=== PATIENT | female | born 1955 | race Caucasian/White ===

== ENCOUNTER 2016-11-03 10:09 | Inpatient (IN) | payer OTHER ==
[2016-11-03] VITALS (11 sets, daily range): BP systolic 103–137; BP diastolic 60–88; PULSE 54–80; RESP 18–22; O2SAT 97–100
[~2016-11-03] VITALS: Ht 162.6 cm; Wt 72.4 kg
[~2016-11-03 10:09] MED LIST: MELO-253 PO
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
[2016-11-03 10:20] LABS: BASOPHILS % (AUTO) 1.4 % (0-3); EOSINOPHILS % (AUTO) 3.2 % (0-5); MONOCYTES % (AUTO) 10.3 % (4-12); Mean Corpuscular Hemoglobin 29.8 pg (27.0-35.0); Mean Corpuscular Volume 89.3 fL (81-100); NEUTROPHILS % (AUTO) 30.2 % (40-74); Platelet Count 275 bil/L (150-400)
[2016-11-03 10:37] LABS: INR 0.98 ratio
--- NOTE | 2016-11-03 10:38 | DRSVH ---
PROCEDURE: CT BRAIN (TPA) ([id number]) INDICATIONS: Stroke TECHNIQUE: Noncontrast 4.5 mm thick angled axial sections acquired from the foramen magnum to the vertex, with c oronal reformats. COMPARISON: None. FINDINGS: Image quality: Diagnostic. Brain: There is no acute intra-axial or extra-axial hemorrhage. No extra-axial fluid collection is i dentified. There is no midline shift or mass effect. The orbits are grossly unremarkable. No large areas of diffusely decreased attenuation are evident within the brain to suggest diffuse cer ebral edema. No focal parenchymal abnormality is identified. The ventricles and cortical sulci are age-appropriate. Bones: Calvarium and visualized facial bones are grossly intact. Mild fluid/mucosal thickening is p resent involving the imaged maxillary sinuses. Otherwise, paranasal sinuses and mastoid air cells ar e clear. IMPRESSION: 1. No acute intracranial hemorrhage. 2. No evidence of diffuse cerebral edema. 3. Mild sinus disease. Note: Finding were discussed with Dr. Zee at 1035 hours (PST) on 11/03/16. This study fulfills neurological imaging criteria for inclusion or exclusion of acute stroke therapie s based on available published neurological imaging guidelines. Dictated by: Jono Wooten M.D. on 11/03/2016 at 9:32 Approved by: Jono Wooten M.D. on 11/03/2016 at 9:37
[2016-11-03 10:41] LABS: TROPONIN T 0.01 ug/L (0.0-0.011)
--- NOTE | 2016-11-03 10:48 | DRSVH ---
PROCEDURE: CT CERVICAL SPINE WITHOUT CONTRAST ([id number]) INDICATIONS: trauma TECHNIQUE: Noncontrast 3 mm thick sections acquired from the skull base to the T4 level. Sagittal and coronal r eformats were then constructed. For radiation dose reduction, the following was used: automated exp osure control, adjustment of mA and/or kV according to patient size. COMPARISON: [facility], CT, CT CERVICAL SPINE WO CON, 01/05/2016, 12:22. FINDINGS: Image quality: Diagnostic. Bones: On the sagittal series, the cervicothoracic junction is adequately visualized and the alignmen t through this region is within normal limits. Additionally, in the craniocervical and atlantoaxial joints are well-maintained. The odontoid is intact. The vertebral body heights and prevertebral sof t tissues are within normal limits throughout the cervical spine without evidence to suggest acute co mpression fracture. No acute fractures of the cervical spine are evident. The bone mineralization is within normal limits. Postsurgical changes are present related to an anterior cervical discectomy and fusion extending from C5 through C7. An anteriorly applied orthopedic plate is secured in place by 2 screws at each level with intervertebral disc spacers noted at each level. The orthopedic hardware is intact and appears similar to the prior study. Mild to moderate degenerative changes of the cervical spine are again e vident throughout the cervical spine, which have not significantly progressed and demonstrate areas o f mild to moderate facet arthropathy and a posterior disc osteophyte complexes. Soft tissues: No prevertebral soft tissue swelling. The imaged overlying soft tissues of the neck a re within normal limits. No pneumothoraces are evident within the imaged lung apices. There is mild aortic atherosclerosis. IMPRESSION: 1. No acute fracture of the cervical spine. 2. Unchanged alignment and appearance of the orthopedic hardware, status post C5-C7 anterior cervica l fusion. 3. Mild to moderate degenerative changes of the cervical spine have not significantly progressed in the interim. Dictated by: Jono Wooten M.D. on 11/03/2016 at 9:41 Approved by: Jono Wooten M.D. on 11/03/2016 at 9:46
[2016-11-03] MEDS ORDERED: HYDROmorphone 0.5 mg/0.5 mL iSecure Syringe IVPUSH PRN (11:10)
[2016-11-03] MEDS ORDERED: Ondansetron 2 mg/mL 2 mL Inj ONE (11:39)
--- NOTE | 2016-11-03 12:06 | DRSVH ---
PROCEDURE: X-RAY THORACIC SPINE, 2 VIEWS INDICATIONS: 60 year-old female with T4 tenderness after fall from chair. TECHNIQUE: 2 views of the thoracic spine were acquired. COMPARISON: [facility], CT, CT ABD PELVIS W CON TRAUMA, 01/05/2016, 12:22. [facility], CT, CT CERVICAL SPINE WO CON, 11/03/2016, 10:27. FINDINGS: Bones: No fractures or dislocations. There is mild mid thoracic spine scoliosis. Patient is status post C5-C7 discectomies with anterior fixation as before. No suspicious bony lesions. 12 pairs of rib s are noted, and appear intact where visualized. Soft tissues: No paravertebral stripe thickening. Large peripherally calcified splenic lesion is ag ain noted on the lateral projection, not significantly changed since December 2015 CT scan. IMPRESSION: 1. No acute bony injuries of the thoracic spine. 2. Large peripherally calcified splenic lesion again noted, probably sequelae of remote infection or hemorrhage. Dictated by: Nawaf Appiah M.D. on 11/03/2016 at 12:00 Approved by: Nawaf Appiah M.D. on 11/03/2016 at 12:05
[2016-11-03] MEDS ORDERED: PANT40TA3 PO (12:10)
[2016-11-03] MEDS ORDERED: TOPI50TA88 PO (12:10)
[2016-11-03] MEDS ORDERED: ZOLP10TA5 PO (12:10)
[2016-11-03] MEDS ORDERED: CITA40TA13 PO (12:10)
[2016-11-03] MEDS ORDERED: LORA-302 PO (12:10)
[2016-11-03 14:22] LABS: APPEARANCE,URINE HAZY (CLEAR,HAZY); COLOR,URINE STRAW (YELLOW); OCCULT BLOOD,URINE NEGATIVE (NEGATIVE); PH,URINE 7.5 (5.0-8.0); UROBILINOGEN,URINE NORMAL (NORMAL)
[2016-11-03] MEDS ORDERED: Ondansetron 2 mg/mL 2 mL Inj IVPUSH PRN (15:55)
--- NOTE | 2016-11-03 16:10 | NUR ---
Report Report received from ANNIKA Shi nurse.
--- NOTE | 2016-11-03 16:57 | PCM.HPMED ---
Subjective Date of Service Nov 03, 2016 Primary Provider: Admitting Physician: Primary Care Physician: Robb Trevino MD Attending Physician: Chief Complaint: LOC History of Present Illness: 60yo F with migraine with aura, GERD p/w witnessed syncopal episode. patient doesn't remember all the course of episode but, pt was usual state of health until this episode. 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 When she asked for headache, she said no. then pt started having severe nausea, but didn't vomit. Then next pt remembers is that her colleague was assisting her to lay down, remembered EMS came, gave her medicine. As per ED provider, pt lost consciousness at work talking to a co- worker, around 9am, had EBD+, called EMS, then pt was improving in her MS but not fully returned, called EMS again 20-39min later, when she was transferred to hospital. Of note, pt had episode 12yrs ago, after she had shoulder MRI, she felt same type of feeling, milder degree with lightheadedness d on his way home but didn't lose consciousness, resolved at rest. pt denied similar episode, denied seizures in the past. pt does have severe Migraine with Aura, started preventives for 12yrs, since then patient rarely requires abortive meds, last attack was one year ago when she took abortive med. doesn't remember any of the medicines' name, "I am foggy ". when she had migraine in the past, she didn't have aura with flushes, which she did not have prior to syncope. Upon interview, pt c/o back soreness, neck pain, unusual feeling on figertips on left hands, perioral area on the left face, decreased sensation throughout on left sided. didn't thinks her speech was particularity different. c/o mild cloudiness on left ear and her throat. ED VSS, labs were unremarkable, CTH/cervical spine CT, thoracic xray didn't show evidence of stroke, fracture. admitted to hospital for further stroke w/u Review of Systems: Pertinent positives as noted in history of present illness. All other systems were reviewed and are negative Allergies Coded Allergies: Cephalosporins (Verified Allergy, Mild, rash, 11/03/16) Penicillins (Verified Allergy, Unknown, Hives, 01/05/16) Uncoded Allergies: NARCOTICS (Allergy, Mild, Hives, 01/05/16) Home Medications patient doesn't remember clearly given her MS migraine meds one for prevention, one for attack prn anti-acid pill ambien 0.5tab for sleeping qhs PMH as described above Surgical History cervical fusion one year ago hysterectomy csecx3 tonsilectomy Family History mother breast CA Social History Hx Alcohol Use: No Hx Substance Use: No Hx Tobacco Use: Yes (former smoker, [id number] quit 12yrs ago) Smoking Status: Never Smoker Exam Vital Signs Vital Sign - Last Date Time Temp Pulse Resp B/P Pulse Ox O2 Delivery O2 Flow Rate FiO2 11/03/16 11:30 121/76 11/03/16 11:30 72 11/03/16 10:20 18 11/03/16 10:10 100 Room Air Exam NAD, comfortably laying down on the bed no JVD, MMM, no LAD RRR, nl s1, s2 no mrg CTAB, no w,c S,ND,NT,normoactive BS+ warm, no edema, pulses 2/2 Neuro:speech coherent, fluent, AAOx3 unable to assess gait PERRLA, EOMI, mild decrease nasolabial fold on left, able shrug shoulders equally able rotate neck equally on both sides FTN, dysdiadochokinesia intact, motor 5/5 throughout, sensory decreased to dull touch on left face, left arm, left leg Lab and Diagnostics Result Diagram: 11/03/16 1016 11/03/16 1016 X-Rays, CTs and MRIs PROCEDURE: CT BRAIN (TPA) ([id number]) INDICATIONS: Stroke TECHNIQUE: Noncontrast 4.5 mm thick angled axial sections acquired from the foramen magnum to the vertex, with coronal reformats. COMPARISON: None. FINDINGS: Image quality: Diagnostic. Brain: There is no acute intra-axial or extra-axial hemorrhage. No extra-axial fluid collection is identified. There is no midline shift or mass effect. The orbits are grossly unremarkable. No large areas of diffusely decreased attenuation are evident within the brain to suggest diffuse cerebral edema. No focal parenchymal abnormality is identified. The ventricles and cortical sulci are age-appropriate. Bones: Calvarium and visualized facial bones are grossly intact. Mild fluid/ mucosal thickening is present involving the imaged maxillary sinuses. Otherwise , paranasal sinuses and mastoid air cells are clear. IMPRESSION: 1. No acute intracranial hemorrhage. 2. No evidence of diffuse cerebral edema. 3. Mild sinus disease. Note: Finding were discussed with Dr. Zee at 1035 hours (PST) on 11/03/16. This study fulfills neurological imaging criteria for inclusion or exclusion of acute stroke therapies based on available published neurological imaging guidelines. Dictated by: Jono Wooten M.D. on 11/03/2016 at 9:32 Approved by: Jono Wooten M.D. on 11/03/2016 at 9:37 Assessment & Plan acute, active syncopal episode, POA, ddx: seizure with jose paralaysis, cardiac arrhythmia/ vavular dz, acute ischemic stroke. Unlikely related to atypical Migraine given that it was well controlled recently. -MR stroke protocol ordered, pt was able to tolerate in the past -TTE, patient was told that she had murmur but unremarkable on exam -telemetry, -frequent neurocheck q4h -s/s eval, PT/OT, assess gait -a1c, lipid panel for risks stratification, pt did have PCP but doesn't get regular checkup -will continue asa, statin for now -tylenol for pain after syncope -EEG ordered chronic, stable Migraine, will continue preventive meds after med rec GERD, will continue home med dispo:Patient will be admitted with inpatient status with expectation of inpatient therapy for more than 2 midnights diet:NPO for now, awaits s/s eval dvt ppx:LMWH Full Code PCP: Dr.Erik Trevino Time spent 65 minutes Aimee Gonzales MD Nov 03, 2016 15:59
--- NOTE | 2016-11-03 17:21 | NUR ---
Evaluation completed. Please go to "Notes" then click on "Assessments and Notes" (bottom left corner of screen). Then select appropriate discipline tab on top of screen.
--- NOTE | 2016-11-03 17:53 | DRSVH ---
PROCEDURE: MRI STROKE PROTOCOL ([id number]) Pre- and post-contrast brain MRI, non-contrast brain MR angiogram, pre- and postcontrast neck MR avinash ogram INDICATIONS: 60 year-old female with syncope and left-sided numbness. TECHNIQUE: Brain: Noncontrast axial T1 spin echo, axial T2 fast spin echo, sagittal and axial FLAIR, coronal T2 fast spin echo, axial gradient echo, axial diffusion and ADC through the brain. After the administr ation of contrast, axial 3D VIBE of the cranial vasculature and brain. Brain MRA: Non-contrast 3-D time of flight MR angiogram, with multiple uykcnyv-ugsdkehtq-kgphbzeeyy (MIP) reformats performed. Neck MRA: Axial and sagittal TruFISP through the neck. Coronal dynamic MR angiogram during administ ration of contrast in the arterial and venous phases, with 3-dimenstional rantugl-ipcnahkfa-blamkjicc n (MIP) reformats constructed from subtraction images. COMPARISON: [facility], CT, BRAIN (TPA), 11/03/2016, 10:27. FINDINGS: Image quality: Excellent. BRAIN: CSF spaces: Ventricles are normal in size and shape. Basal cisterns are patent. No extra-axial flu id collections. Brain: No intracranial bleeds or mass effects. Alvarez-white matter interface is normal. Diffusion we ighted images show no acute ischemic insults. Brainstem appears normal. Normal intravascular flow v oids are present. No abnormal intracranial enhancement. Skull and face: Calvarial marrow signal is normal. Orbits appear normal. Sinuses: Sinuses and mastoids are clear, except for small dependent fluid in the right maxillary sin us. BRAIN MR ANGIOGRAM: Anterior circulation: Intracranial internal carotid arteries are normal in size and enhancement. Th e flow within the paired anterior cerebral arteries is normal and symmetric. The flow within the mid dle cerebral arteries is normal and symmetric. The anterior communicating artery is seen. No stenos es, occlusions, or aneurysms. Posterior circulation: The visualized portions of the vertebral arteries demonstrate normal caliber, and join to form a normal appearing basilar artery. The flow within the posterior cerebral arteries is normal and symmetric. No stenoses, occlusions, or aneurysms. NECK MR ANGIOGRAM: Carotids: Great vessels demonstrate a conventional anatomy as they arise from the aortic arch. The origins of the common carotid arteries appear patent. The calibers and courses of both common caroti d arteries are normal. The bifurcation regions appear normal bilaterally. The internal carotid manolo val demonstrate normal course and caliber. Posterior circulation: The origins of the vertebral arteries appear patent. More superior portions of both vertebral arteries demonstrate normal course and caliber, and join to form a normal appearing basilar artery. Miscellaneous: Subclavian arteries appear patent. Pre-contrast images through the neck show no soft tissue abnormalities. IMPRESSION: BRAIN MRI: No acute intracranial abnormalities. Small right maxillary sinus fluid may suggest sinusitis. BRAIN MR ANGIOGRAM: No hemodynamically significant lesions of the central intracranial vasculature. NECK MR ANGIOGRAM: No hemodynamically significant lesions of the extracranial neck vasculature. Dictated by: Nawaf Appiah M.D. on 11/03/2016 at 17:42 Approved by: Nawaf Appiah M.D. on 11/03/2016 at 17:52
--- NOTE | 2016-11-03 17:55 | NUR ---
Admission Pt admitted to room 3017 from MRI via stretcher. Pt admission from ED. Ambulated to restroom, tolerated well. Complaints of pain to neck and back, distraction and comfort techniques in place as we await medication orders. Dr. Gonzales to be paged regarding pain medication desires. Oriented to room and floor, call light within reach, bed in lowest position. Pt denies any further needs.
--- NOTE | 2016-11-03 18:30 | NUR ---
Telemetry Telemetry called, tele applied to patient. Per telegraphic typewriter repairer, patient in NSR in 60's.
--- NOTE | 2016-11-03 19:21 | DRSVH ---
PROCEDURE: US BILATERAL DUPLEX DOPPLER IMAGING OF THE CAROTIDS ([id number]) INDICATIONS: 60 year-old female with syncope. TECHNIQUE: Color and pulse Doppler interrogation was performed of both carotid systems, with image documentation and velocity measurements. COMPARISON: None. FINDINGS: Right side: Brachial blood pressure: 121/76 mm Hg. Common carotid artery peak systolic velocity: 66 cm/sec. Internal carotid artery peak systolic velocity: 84 cm/sec. Internal carotid artery end diastolic velocity: 35 cm/sec. External carotid artery peak systolic velocity: 72 cm/sec. ICA/CCA peak systolic ratio: 1.28. Alvarez scale imaging description: No atherosclerotic plaque. Percent internal carotid artery stenosis: 0%. Vertebral artery: Flow direction is antegrade. Left side: Brachial blood pressure: 121/66 mm Hg. Common carotid artery peak systolic velocity: 83 cm/sec. Internal carotid artery peak systolic velocity: 86 cm/sec. Internal carotid artery end diastolic velocity: 28 cm/sec. External carotid artery peak systolic velocity: 83 cm/sec. ICA/CCA peak systolic ratio: 1.03. Alvarez scale imaging description: Small plaque within the proximal internal carotid artery. Percent internal carotid artery stenosis: Less than 50%. Vertebral artery: Flow direction is antegrade. IMPRESSION: No hemodynamically significant stenoses of the extracranial internal carotid arteries. Dictated by: Nawaf Appiah M.D. on 11/03/2016 at 19:17 Approved by: Nawaf Appiah M.D. on 11/03/2016 at 19:20
[2016-11-04] VITALS (7 sets, daily range): BP systolic 94–121; BP diastolic 56–74; PULSE 51–65; RESP 16–18; O2SAT 95–99
--- NOTE | 2016-11-04 12:25 | DRSVH ---
[facility] [address] [place] [address] Echocardiogram Report Name: KATHERINE PADILLA LStudy Date: 11/04/2016 Height: 64 in Hospital Exam Location: [facility] Weight: 160 lb Gender: Female BSA: 1.8 m2 : 1955 Age: 60 yrs BP: 106/57 mmHg Reason For Study: SYNCOPE Ordering Physician: HOSPITALIST SVHPerformed By: Gracie Caldera Referring Physician: Dr. Robb Trevino Interpretation Summary The left ventricle is normal in size, wall thickness, and systolic function without any focal wall motion abnormalities. The ejection fraction is estimated to be 60-65%. The right ventricle is normal in size and function. The right ventricular systolic pressure is estimated at 22 mmHg assuming a right atrial pressure of 3 mm Hg. Both atria are mildly dilated. There is mild mitral regurgitation. There is mild aortic regurgitation. There is no other significant valvular heart disease. The aortic root is normal size. Procedure: A two-dimensional transthoracic echocardiogram with color flow and Doppler was performed. The study quality was technically good. There is no prior echocardiogram noted for this patient. The patient was in a bradycardic rhythm during the exam. Left Ventricle: The left ventricle is normal in size, wall thickness, and systolic function without any focal wall motion abnormalities. The ejection fraction is estimated to be 60-65%. Assessment of diastolic parameters indicates normal left ventricular diastolic function and normal filling pressures. Right Ventricle: The right ventricle is normal in size and function. Atria: Both atria are mildly dilated. There is no Doppler evidence for an atrial septal defect. Mitral Valve: The mitral valve leaflets appear normal. There is no evidence of stenosis, fluttering, or prolapse. There is mild mitral regurgitation. Aortic Valve: The aortic valve is trileaflet. The aortic valve opens well. There is mild aortic regurgitation. Tricuspid Valve: The tricuspid valve leaflets are thin and pliable. There is mild tricuspid regurgitation. The right ventricular systolic pressure is estimated at 22 mmHg assuming a right atrial pressure of 3 mm Hg. Pulmonic Valve: The pulmonic valve leaflets are thin and pliable; valve motion is normal. There is a trace or physiologic amount of pulmonic regurgitation. There is no other significant valvular heart disease. Great Vessels: The aortic root is normal size. The dimensions of the ascending aorta are normal. The pulmonary artery is normal size. The IVC is of normal diameter and collapses greater than 50% with a sniff. This suggests a low right atrial pressure of 3 mm Hg. Pericardium/ Pleura There is no pericardial effusion. There is no pleural effusion. MMode/2D Measurements & Calculations LVIDd: 4.7 cm LA dimension: 3.8 cm RA long axis LVOT diam: 2.1 cm LVIDs: 3.1 cm Ao root diam FS: 34.5 % LA A2 area: 22.4 cm RA area EPSS: 0.88 cm LA A4 area: 19.5 cm Aortic Jxn: 2.8 cm IVSd: 0.86 cm LA length (vol) : 18.2 cm asc Aorta Diam LVPWd: 0.74 cm RA vol LA vol: 70.5 ml : 61.3 ml Ao Arch Diam (Prox LA vol index RA Trans): 2.9 cm : 34.5 mm/ RVDd major IVC diam: 1.4 cm : 6.2 cm LV doran. diameter/BSA LV sys. diameter/BSA RVD2 (mid) (cm/m^2): 2.6 (cm/m^2): 1.7 : 3.0 cm Doppler Measurements & Calculations Ao V2 max MV E max syd MV E/A: 0.94 TR max syd : 131.9 cm/sec : 69.9 cm/sec Med Peak E' Syd : 218.8 cm/sec Ao max PG MV A max syd TR max PG : 7.0 mmHg : 74.7 cm/sec E/E' med: 7.8 : 19.2 mmHg Ao mean PG MV P1/2t: 61.5 msec Lat Peak E' Syd PA V2 max : 81.3 cm/sec LVOT Max Syd E/E' lat: 5.9 PA mean PG : 112.9 cm/sec E/e' average: 6.9 SHAHRZAD(I,D): 2.7 cm Pulm A Revs Dur PA Accel Time sev ratio : 0.17 sec MV A dur: 0.15 sec AI P1/2t : 553.5 msec AI dec slope : 204.3 cm/s2c MV dec time MV P1/2t max syd Ao V2 mean LV V1 max PG : 0.21 sec : 94.1 cm/sec MVA(P1/2t): 3.6 cm2 Ao V2 VTI: 30.3 cm LV V1 VTI SHAHRZAD(V,D): 2.9 cm2 : 24.0 cm PA V2 mean SHAHRZAD indexed to BSA Pulm A Revs Dur - MV : 58.3 cm/sec (cm^2/m^2): 1.5 A Dur: 0.03 msec Reading Physician:PM
--- NOTE | 2016-11-04 12:28 | NUR ---
AM meds/Pain AM meds given late d/t EEG testing happening in her room, followed by the ECHO. Pt c/o pain in neck radiating down to back, maxing at 5/10. 1x Ketorolac ordered and given, along with scheduled muscle relaxant. Pt states improvement. Bed in low position, upper rails up, call light in reach. Will continue to monitor.
--- NOTE | 2016-11-04 12:31 | PCM.PNMED ---
Subjective Date of Service Nov 04, 2016 Subjective Patient still has decreased, unusual sensation on the left fingertips and her left foot Still remained motor strength intact Denied any weakness throughout Patient is able to communicate without slurred speech. Exam Vital Signs Vital Sign - Last Date Time Temp Pulse Resp B/P Pulse Ox O2 Delivery O2 Flow Rate FiO2 11/04/16 10:37 62 11/04/16 06:02 36.4 16 106/67 98 Room Air Intake and Output 11/03/16 11/03/16 11/04/16 Cumulative From/Thru 15:00 23:00 07:00 11/03/16 10:10 - 11/04/16 06:02 Intake Total 1318 ml 400 ml 1718 ml Output Total 1200 ml 1200 ml Balance 118 ml 400 ml 518 ml Intake Oral 318 ml 400 ml 718 ml IV Total 1000 ml 1000 ml Output Urine Total 1200 ml 1200 ml # Voids 2 2 4 # Bowel Movements 0 0 Exam NAD, comfortably laying down on the bed no JVD, MMM, no LAD RRR, nl s1, s2 no mrg CTAB, no w,c S,ND,NT,normoactive BS+ warm, no edema, pulses 2/2 neuro exam: CN2-12 intact IVs and Medications Medications Reviewed: Medications were reviewed in detail Lab and Diagnostics Result Diagram: 11/03/16 1016 11/03/16 1016 X-Rays, CTs and MRIs PROCEDURE: CT BRAIN (TPA) ([id number]) INDICATIONS: Stroke TECHNIQUE: Noncontrast 4.5 mm thick angled axial sections acquired from the foramen magnum to the vertex, with coronal reformats. COMPARISON: None. FINDINGS: Image quality: Diagnostic. Brain: There is no acute intra-axial or extra-axial hemorrhage. No extra-axial fluid collection is identified. There is no midline shift or mass effect. The orbits are grossly unremarkable. No large areas of diffusely decreased attenuation are evident within the brain to suggest diffuse cerebral edema. No focal parenchymal abnormality is identified. The ventricles and cortical sulci are age-appropriate. Bones: Calvarium and visualized facial bones are grossly intact. Mild fluid/ mucosal thickening is present involving the imaged maxillary sinuses. Otherwise , paranasal sinuses and mastoid air cells are clear. IMPRESSION: 1. No acute intracranial hemorrhage. 2. No evidence of diffuse cerebral edema. 3. Mild sinus disease. Note: Finding were discussed with Dr. Zee at 1035 hours (PST) on 11/03/16. This study fulfills neurological imaging criteria for inclusion or exclusion of acute stroke therapies based on available published neurological imaging guidelines. Dictated by: Jono Wooten M.D. on 11/03/2016 at 9:32 Approved by: Jono Wooten M.D. on 11/03/2016 at 9:37 Assessment & Plan acute, active syncopal episode, POA, ddx: medication induced paresthesia -Topiramate, seizure with jose paralaysis, cardiac arrhythmia/vavular dz, Unlikely related to atypical Migraine given that it was well controlled recently. ruled out stroke with MR stroke protocol. Carotid US also unremarkable. -pt remained stable, no further episode observed -TTE, patient was told that she had murmur but unremarkable on exam -telemetry, -frequent neurocheck q4h -PT/OT, assess gait -awaits a1c, lipid panel ASCVD<2.5%, not Ix for statin, -will continue asa, stop statin -tylenol for pain after syncope -EEG ordered -likely needs early close FU with Neurology upon d/c chronic, stable Migraine, given paresthesic sx, switched to Depakote 500 qd, GERD, will continue home med insomnia, continue zolpidem prn dispo:will monitor one more day in house, likely going home tomorrow. diet:regular per S/S dvt ppx:LMWH Full Code PCP: Dr.Erik Trevino VTE Mechanical Devices: Intermittant Pneumatic CD Time spent 35min Aimee Gonzales MD Nov 04, 2016 11:36
--- NOTE | 2016-11-04 13:14 | NUR ---
Social Work Note - Screening: D/A: The Pt is a 60 y/o female that was admitted for CVA. The Pt's PCP is MD Robb Trevino and her insurance is [employer], no LTC or VA benefits reported. EMR reviewed. The Pt lives independently in her home with her in [place]. The Pt continues to work, drive, does not use any DME, and has no HH/SNF history. Advanced Directive discussed, Pt declines at this time. EEG completed, results pending. PT eval completed, recommending D/C to home with possible outpatient PT if cervical symptoms continue to persist. ST following, further eval dependent on imaging results. The Pt denies any needs at this time, SW to follow if needs arise. P: The Pt is not medically stable for discharge, will likely discharge home via family POV transportation when ready. The Pt denies any needs at this time, SW to follow if needs arise. Ranjana Delgado, FLAME CUTTING MACHINE OPERATOR Store Consultant
[2016-11-04 15:29] LABS: BASOPHILS % (AUTO) 1.1 % (0-3); EOSINOPHILS % (AUTO) 4.1 % (0-5); MONOCYTES % (AUTO) 8.9 % (4-12); Mean Corpuscular Hemoglobin 29.8 pg (27.0-35.0); NEUTROPHILS % (AUTO) 41.4 % (40-74); Platelet Count 212 bil/L (150-400)
[2016-11-04 15:55] LABS: Magnesium 2.2 mg/dL (1.6-2.6)
--- NOTE | 2016-11-04 17:00 | PCM.CHPMED ---
Subjective Date of Service: Nov 04, 2016 Provider requesting consult: Aimee Gonzales MD Primary Physician: Admitting Physician: Aimee Gonzales MD Primary Care Physician: Robb Trevino MD Attending Physician: Aimee Gonzales MD Admit Status: From the Emergency Department, Full Admit Chief Complaint: Chief Complaint: Syncope. . History of Present Illness: Neurology Consultation: Attending Dr. Villarreal Payal So is a 60-year-old female with a past medical history significant for migraines with aura and anxiety who presented to [facility] Emergency Department on 11/03/2016 for syncopal episode at work. The patient reports that she was sitting at her desk working when she abruptly felt lightheaded and nauseated. She does not recall losing consciousness or falling on the floor. The patient's coworkers reported that she was having a conversation when she suddenly lost consciousness and fell to the floor. She reportedly hit the front of her head on the floor and the back of her head on the desk. The patient remembers waking up on the floor. EMS was called and she was taken to [facility] ED. She reports that her entire left side (from her face to her foot) felt numb afterwards but has since resolved. She denies dysarthria, facial droop, diplopia or blurred vision, flashes of light, tunnel vision, headache, chest pain, shortness of breath, or abdominal pain. She has a significant history for migraine headaches with aura. She denies feeling like a headache was coming on. The patient aura usually consists of flashes of light in her periphery and tunnel vision. She is on Topamax 50 mg twice daily for migraine prophylaxis. She reports that her longest migraine headache lasted 58 days. She has not had a migraine headache for approximately 6 months according to her . Her headaches are worse in the summer months due to reflections of light off cars. Her headaches are unilateral and often left- sided. She reports one other episode of "blacking out" which she was told was a side effect to contrast she received for an MRI of her right shoulder. She had no other neurological symptoms that she can recall. Of note, she had a recent viral illness that has resolved and did feel "off" yesterday morning prior to the syncopal episode. PCP is Dr. Trevino. . Review of Systems: A comprehensive review of systems was conducted with the patient and found to be negative except as above in the History of Present Illness. . PMH Past Medical History 1. Migraine headaches. 2. Anxiety. 3. GERD. 4. Insomnia. 5. Hyperlipidemia. . Surgical History 1. Total abdominal hysterectomy with bilateral salpingo-oophorectomy. 2. section 3. 3. Right rotator cuff repair. 4. C5-C6 fusion. . Home Medications Citalopram 40 mg daily at bedtime. Lorazepam 0.5-1.0 mg every 8 hours as needed for anxiety. Pantoprazole 40 mg daily at bedtime. Topiramate 50 mg twice a day. Zolpidem 5 mg daily at bedtime. Fioricet as needed at onset of migraine. vitamin daily. Vitamin B12 daily. . Allergies: Coded Allergies: Cephalosporins (Verified Allergy, Mild, rash, 11/03/16) Penicillins (Verified Allergy, Unknown, Hives, 01/05/16) Uncoded Allergies: NARCOTICS (Allergy, Mild, Hives, 01/05/16) Family History Family History Mother who had migraines with aura and from metastatic breast cancer. Father who committed suicide. Paternal grandmother who from Parkinson's disease. Sister who recently from mesothelioma. Brother who from cancer secondary to agent orange in exposure. A sister and brother who are alive and healthy. Two half siblings of which her half brother has had 2 CVAs. Both of her sisters suffer from migraines. Also a niece with migraines and a possible seizure disorder. . Social History Hx Alcohol Use: Yes (formerly drank heavily in her 50s)Hx Substance Use: NoHx Tobacco Use: Yes (former smoker, 0.5 ppd x 5yrs quit 12yrs ago) Smoking Status: Never Smoker Additional Information The patient has been for 47 years. She has 2 daughters who are both healthy. She works as an general accountant. She reports that her job is not stressful. . Exam Vital Signs Vital Sign - Last Date Time Temp Pulse Resp B/P Pulse Ox O2 Delivery O2 Flow Rate FiO2 11/04/16 13:31 36.9 61 18 117/72 99 Room Air Intake and Output 11/03/16 11/03/16 11/04/16 Cumulative From/Thru 15:00 23:00 07:00 11/03/16 10:10 - 11/04/16 06:02 Intake Total 1318 ml 400 ml 1718 ml Output Total 1200 ml 1200 ml Balance 118 ml 400 ml 518 ml Intake Oral 318 ml 400 ml 718 ml IV Total 1000 ml 1000 ml Output Urine Total 1200 ml 1200 ml # Voids 2 2 4 # Bowel Movements 0 0 Additional Information: General: Middle-aged female lying in bed and in no acute distress. HEENT: Normocephalic, atraumatic. External ears without defect. Pupils equal, round, and reactive to light. Anicteric sclerae, moist conjunctivae, and no lid lag. Oropharynx free of erythema and cobble stoning with moist mucosa. Neck: Supple with full range of motion. No lymphadenopathy or thyromegaly. Cardiovascular: Regular rate and rhythm without murmurs, rubs, or gallops. Pulmonary: Clear to auscultation bilaterally with no crackles, wheezes, or rhonchi. Normal respiratory effort with no use of accessory muscles. Abdomen: Soft, nontender, nondistended, bowel tones present. No hepatosplenomegaly or masses appreciated. Extremities: No clubbing, cyanosis, or edema. Skin: Normal temperature, turgor, and texture; no rash, ulcers, or subcutaneous nodules appreciated. Neurological: Alert and oriented to person, place, and time. No dysarthria or aphasia. Pupils equal, round, reactive to light. EOMI. No nystagmus. Tongue midline. Face symmetrical. Trapezii and sternocleidomastoid intact +5/5. Sensation intact. MS +5/5 in all extremities. DTRs hyperreflexic and symmetrical. Babinski negative. [id number] intact without dysmetria. Heel -to-chin intact bilaterally. Psychiatric: Normal mood and affect. . Lab and Diagnostics Labs Microbiology: Urine culture has no growth to date. . Result Diagram: 11/04/16 1517 11/03/16 1016 X-Rays, CTs and MRIs US BILATERAL DUPLEX DOPPLER IMAGING OF THE CAROTIDS IMPRESSION: No hemodynamically significant stenoses of the extracranial internal carotid arteries. Dictated by: Nawaf Appiah M.D. on 11/03/2016 at 19:17 MRI STROKE PROTOCOL IMPRESSION: BRAIN MRI: No acute intracranial abnormalities. Small right maxillary sinus fluid may suggest sinusitis. BRAIN MR ANGIOGRAM: No hemodynamically significant lesions of the central intracranial vasculature. NECK MR ANGIOGRAM: No hemodynamically significant lesions of the extracranial neck vasculature. Dictated by: Nawaf Appiah M.D. on 11/03/2016 at 17:42 CT CERVICAL SPINE WITHOUT CONTRAST IMPRESSION: 1. No acute fracture of the cervical spine. 2. Unchanged alignment and appearance of the orthopedic hardware, status post C5-C7 anterior cervical fusion. 3. Mild to moderate degenerative changes of the cervical spine have not significantly progressed in the interim. Dictated by: Jono Wooten M.D. on 11/03/2016 at 9:41 X-RAY THORACIC SPINE, 2 VIEWS IMPRESSION: 1. No acute bony injuries of the thoracic spine. 2. Large peripherally calcified splenic lesion again noted, probably sequelae of remote infection or hemorrhage. Dictated by: Nawaf Appiah M.D. on 11/03/2016 at 12:00 CT BRAIN (TPA) IMPRESSION: 1. No acute intracranial hemorrhage. 2. No evidence of diffuse cerebral edema. 3. Mild sinus disease. Note: Finding were discussed with Dr. Zee at 1035 hours (PST) on 11/03/16. This study fulfills neurological imaging criteria for inclusion or exclusion of acute stroke therapies based on available published neurological imaging guidelines. Dictated by: Jono Wooten M.D. on 11/03/2016 at 9:32 . Additional Diagnostics: Echocardiogram Interpretation Summary: The left ventricle is normal in size, wall thickness, and systolic function without any focal wall motion abnormalities. The ejection fraction is estimated to be 60-65%. The right ventricle is normal in size and function. The right ventricular systolic pressure is estimated at 22 mmHg assuming a right atrial pressure of 3 mm Hg. Both atria are mildly dilated. There is mild mitral regurgitation. There is mild aortic regurgitation. There is no other significant valvular heart disease. The aortic root is normal size. Reading Physician:PM . Assessment & Plan Assessment Payal So is a 60-year-old female with a past medical history significant for migraines with aura and anxiety who presented to [facility] emergency Department on 11/03/2016 for syncopal episode at work. Assessment: 1. Acute syncopal episode with left sided paraesthesias, present on admission. Resolved. Impression: The patient presented for syncopal episode that occurred at work and was preceded by abrupt onset lightheadedness and nausea followed by left-sided paraesthesias that have since resolved. She was otherwise non-focal. Imaging to date has been negative for any acute CVA or intracranial process. The EEG did not reveal any epileptiform foci. Echocardiogram did not reveal any significant valvular disease and cardiac monitoring has shown no arrhythmias. She has a significant history for migraine headaches with aura for which she had status migrainosus of 58 days in length at one point and her last migraine was approximately 6 months ago. She denies having a migraine or aura prior to the syncopal episode. This episode of syncope likely is shared services representative of a complex migraine. Differential diagnosis includes less likely vasovagal syncope as patient had neurological symptoms accompanying her syncopal episode versus TIA versus arrhythmia. Ruled out valvular heart disease. Recommendations: 1. Increase Topamax to 100 twice daily for migraine prophylaxis. 2. Consider abortive therapy for migraine. Thank you for this most interesting consult. . Problems: VTE Mechanical Devices: Intermittant Pneumatic CD Attending Statement Seen and examined with resident. Agree with above. Sandra Serna DO Nov 04, 2016 16:00 Julio Villarreal MD December 01, 2016 01:12
[2016-11-04] MEDS ORDERED: Pantoprazole 40 mg ER24 Tablet PO SCH (21:00)
[2016-11-05 00:44] VITALS: BP 112/67; PULSE 55; RESP 16; O2SAT 97
[2016-11-05 00:45] VITALS: PULSE 73
[2016-11-05 04:35] VITALS: BP 108/65; PULSE 62; RESP 16; O2SAT 96
[2016-11-05] MEDS ORDERED: Aspirin-Caffeine-Butalbital Tablet PO PRN (08:20)
[2016-11-05] MEDS ORDERED: Aspirin-Caffeine-Butalbital Tablet PO ONE (08:20)
--- NOTE | 2016-11-05 08:22 | PROCED ---
[address] [address] EEG PATIENT: KATHERINE PADILLA : 1955 MR#: [id number] ADMIT: 11/03/2016 JOB ID: [id number] HISTORY: A 60-year-old woman with an episode of loss of consciousness. TECHNICAL DESCRIPTION: This digital EEG was recorded using 25 scalp and ear, and two EKG electrodes. It was reviewed in bipolar and referential montages following reformatting in the 10-20 [employer] Electrode Placement System. During the recording, the patient was noted to be awake, drowsy, and asleep. The background was composed of a symmetrical 9 hertz 20/50 microvolt, symmetrical and reactive posterior dominant rhythm that attenuated with eye opening. The rest of the background was composed of low voltage faster frequencies. There were no focal, lateralized, or epileptiform discharges noted. There were no seizures seen. Hyperventilation was performed for 3 minutes with fair effort. However, no slowing of the background rhythm was noted. No frontally predominant buildup was noted. Photic stimulation from 1-30 hertz did not elicit any photic driving response. During sleep, there was a quite prominent drowsy burst. However, did not appear to be epileptiform in nature. Stage 1 of sleep was characterized by the development of vertex waves which appeared symmetrical and K complexes. This is followed by the development of sleep spindles and K complexes, heralding stage 2 of sleep. The EKG rhythm strip revealed a heart rate of 60-80 beats per minute, with no apparent arrhythmias. IMPRESSION: This electroencephalogram performed in the awake, drowsy, and asleep states is within normal limits. Clinical correlation is advised.
--- NOTE | 2016-11-05 09:24 | CONS ---
[address] [address] CONSULTATION REPORT PATIENT: KATHERINE PADILLA : 1955 MR#: [id number] ADMIT: 11/03/2016 JOB ID: [id number] DATE OF SERVICE: 11/05/2016 NEUROLOGY CONSULTATION: CHIEF COMPLAINT: Sudden onset of episode of loss of consciousness. HISTORY OF PRESENT ILLNESS: The patient is a very pleasant 60-year-old right-handed woman with multiple medical problems, including a history of migraine headaches with aura who reportedly developed an episode of sudden onset of syncope. She reports that she was at work when she suddenly felt dizzy and a writhing sensation in her stomach as though she was going to vomit. She felt nauseated and then reports that she suddenly lost consciousness. She hit the front of her head on the floor and the back of her head on the desk. She does report that she remembers awakening on the floor during the episode and the entire left side of her body from face to foot felt numb. However, this has resolved this morning. No other neurologic symptoms were associated with this episode. She reports no history of seizure disorder. There is no family history of seizure disorder. There is no history of complicated or hemiplegic migraines in the past. She does report one episode of losing consciousness which she reports is a side effect or a reaction to receiving contrast for an MRI of the right shoulder. She does report a strong family history of migraine headaches in her mother and in her sisters. PRIMARY CARE DOCTOR: Robb Trevino M.D. REVIEW OF SYSTEMS: A complete review of systems was performed and was remarkable for above noted. PAST MEDICAL HISTORY: 1. Migraine headaches without aura. She reports that these have been well controlled on Topamax. She has not noted any side effects of Topamax. We reviewed the side effects of Topamax in detail. 2. Past medical history also remarkable for anxiety. 3. Gastroesophageal reflux disease. 4. Insomnia. 5. Hyperlipidemia. PAST SURGICAL HISTORY: 1. Status post total abdominal hysterectomy with bilateral salpingo-oophorectomy. 2. section x3. 3. Right rotator cuff repair. 4. C5-C6 fusion. HOME MEDICATIONS: Include: 1. Citalopram. 2. Lorazepam. 3. Pantoprazole. 4. Topamax 50 mg b.i.d. 5. Zolpidem. 6. Fioricet p.r.n. 7. Butalbital p.r.n. 8. vitamins. 9. Vitamin B12 daily. I reviewed the side effects of butalbital in detail. We discussed using this medication very sparingly given the risk of rebound headaches. ALLERGIES: To CEPHALOSPORINS and PENICILLINS. We also discussed in detail Triptan therapy. However, given that she is undergoing an extensive workup as to the etiology of this episode, I recommended deferring on starting triptans at this point, and given that we do not have a clear explanation as to the etiology of this suspected convulsive syncope episode. FAMILY HISTORY: There is a strong family history of migraine headaches. SOCIAL HISTORY: No tobacco, alcohol or drugs. PHYSICAL EXAMINATION: Temperature 36.0, pulse of 62, respiratory rate of 16, blood pressure 108/65, pulse oximetry 96% on room air. General: She is a well-developed, well-nourished woman, in no acute distress. Head: Normocephalic, atraumatic. Neck: Supple. No carotid bruits were auscultated. Negative Kernig. Negative Brudzinski. Chest: Clear to auscultation. Heart: Regular rate and rhythm. Abdomen: Soft, nondistended, nontender. Extremities: No cyanosis, clubbing or edema. NEUROLOGIC EXAMINATION: Mental status: She is awake, alert and oriented x3. Speech clear and fluent with intact comprehension. She does have prominent photophobia. No aphasia. Cranial nerves: Pupils equal, round and reactive to light. Extraocular movements were smooth and conjugate with no evidence of nystagmus. Face appeared symmetrical. Facial sensation was intact to light touch and temperature. Auditory sensation was intact to finger rub. Palatal elevation was symmetrical. Tongue was midline. Sternocleidomastoid and trapezii were 5/5 bilaterally. Motor: Normal tone and bulk. Muscle strength 5/5 throughout. Sensation intact to light touch and temperature. Deep tendon reflexes 2+ and symmetrical. Plantars are flexor bilaterally. Coordination: Finger to nose was intact without evidence of dysmetria. Gait was deferred. It should be noted that she was photophobic and the room was dark. Negative Kernig. Negative Brudzinski. LABORATORY STUDIES: WBC 5.6, hemoglobin 11.9, hematocrit 36.4, and platelets of 212. Sodium 139, potassium 3.4, chloride 106, bicarbonate 14, BUN 16, creatinine 0.82 and glucose of 115. IMAGING: CT of the head negative. CT cervical spine demonstrated status post C5-C7 anterior cervical fusion, [id number] degenerative changes of the cervical spine had not significantly progressed in the interim. MRI was negative. There was mild sinus disease in the right maxillary sinus. Fluid appeared to be present. Echocardiogram: The left ventricle is normal in size, wall thickness and systolic function without any focal wall motion abnormalities. The ejection fraction estimated to be 60%-65%. The right ventricle is normal in size and function. Both atria are mildly dilated. There is mild mitral regurgitation. There is mild aortic regurgitation. There is no other significant valvular heart disease. The aortic root is normal size. IMPRESSION: Episode of loss of consciousness. Differential diagnosis does include convulsive syncope secondary to vasovagal syncope versus an ictal etiology. Her electroencephalogram was unremarkable, thus making an ictal etiology far less likely. I do recommend though a Holter monitor study for 48 hours as an outpatient to exclude the possibility of a cardiac arrhythmia. She may also benefit from an event recorder if needed. We did discuss this event in detail. We did discuss driving, heights and swimming alone. My recommendation is to increase the Topamax to 100 mg b.i.d. and check a Topamax level in one month. My suspicion is that this was a convulsive syncopal episode. We did discuss the phenomenon of migralepsy. This is a rare condition, but does remain in the differential. She may also benefit from further evaluation by Cardiology given her abnormal echocardiogram. I advised her to use butalbital sparingly due to the risk of rebound. We discussed management of her headaches in detail. We discussed headache hygiene. At this point, I would defer on starting any abortive therapy involving triptans while she is undergoing this evaluation to exclude any cardiac etiology for this episode. Given the clinical history and examination, it appears unlikely that this represents a transient ischemic attack. It appears that her only risk factor appears to be hyperlipidemia and I do recommend that she evaluate this and discuss this with her primary care provider. Her cholesterol was 222 and LDL cholesterol 143, with a HDL is 60. I do recommend she discuss this with Dr. Trevino as an outpatient and I do recommend optimizing control of her hyperlipidemia. Thank you, again for allowing me to participate in the care of your patient. Dr. Gonzales, please feel free to contact me with any questions or concerns. She may benefit from followup in the Neurology Clinic in one month.
[2016-11-05 09:43] VITALS: BP 115/69; PULSE 57; RESP 16; O2SAT 99
[2016-11-05] MEDS ORDERED: BUTA1CAP39 PO (10:17)
[2016-11-05] MEDS ORDERED: TOPI100T32 PO (10:17)
--- NOTE | 2016-11-05 10:21 | PCM.DIMED ---
Discharge Instructions Date of Service Nov 05, 2016 Dates of Hospitalization Nov 03, 2016 at 16:26 Discharge Diagnosis Discharge Diagnosis Syncopal episode, probably related to complex migraine vs cardiac arrhythmia Medication Instructions Please note that your Topamax increased to 100mg twice a day You can take Fioricet 1tab every four hours for severe Migraine headache Diet No restrictions Activity No restrictions Patient Instructions You were hospitalized with witnessed syncopal episode, which probably related to your Migraine. However, given no clear etiology for your episode, It is strongly recommended to follow up with your primary doctor and Neurologist for further work ups. Please note that you should limit active physical activities such as driving as you discussed with . Follow-up Provider: Julio Villarreal MD Follow-up with PCP in: 4 weeks Provider: Robb Trevino MD Follow-up in: 1 week Aimee Gonzales MD Nov 05, 2016 10:21
[2016-11-05 11:09] VITALS: PULSE 70
[2016-11-05 13:35] VITALS: BP 115/70; PULSE 60; RESP 16; O2SAT 94
--- NOTE | 2016-11-05 15:46 | NUR ---
Discharge Patient given discharge orders. Patient IV removed fully intact and asymptomatic. Patient given medication list with written and verbal instructions when next dose due. Patient given follow up information. Patient given hard copies of prescriptions. Patient given informational packet. Patient daughter in room at time of discharge.
--- NOTE | 2016-11-05 17:16 | NUR ---
SW - Discharge Data: The Pt is on day 2 of hospitalization for CVA. Per morning rounds the pt will discharge today and is up and independent in the room. PT evaluated pt and recommends outpatient PT. Pt to discharge home via family. No further needs assessed. Assessment: Pt who is independent at baseline Plan: The Pt will discharge home via family POV transportation. No further needs assessed. ROBERT Donovan
--- NOTE | 2016-11-06 21:26 | PCM.DC.MED ---
Discharge Summary Date of Service Nov 05, 2016 Dates of Hospitalization Date of Hospital Admission Nov 03, 2016 at 16:26 Date of Discharge: Nov 05, 2016 Providers: Admitting Physician: Aimee Glynn MD Primary Care Physician: Robb Trevino MD Attending Physician: Aimee Glynn MD Diagnosis at Time of Discharge Diagnosis at Time of Discharge acute problems Syncopal episode, probably related to complex migraine vs cardiac arrhythmia chronic problems Migraine GERD insomnia Consultations Neurology, Procedures XRay, CTs & MRIs PROCEDURE: CT BRAIN (TPA) ([id number]) INDICATIONS: Stroke TECHNIQUE: Noncontrast 4.5 mm thick angled axial sections acquired from the foramen magnum to the vertex, with coronal reformats. COMPARISON: None. FINDINGS: Image quality: Diagnostic. Brain: There is no acute intra-axial or extra-axial hemorrhage. No extra-axial fluid collection is identified. There is no midline shift or mass effect. The orbits are grossly unremarkable. No large areas of diffusely decreased attenuation are evident within the brain to suggest diffuse cerebral edema. No focal parenchymal abnormality is identified. The ventricles and cortical sulci are age-appropriate. Bones: Calvarium and visualized facial bones are grossly intact. Mild fluid/ mucosal thickening is present involving the imaged maxillary sinuses. Otherwise , paranasal sinuses and mastoid air cells are clear. IMPRESSION: 1. No acute intracranial hemorrhage. 2. No evidence of diffuse cerebral edema. 3. Mild sinus disease. Note: Finding were discussed with Dr. Zee at 1035 hours (PST) on 11/03/16. This study fulfills neurological imaging criteria for inclusion or exclusion of acute stroke therapies based on available published neurological imaging guidelines. Dictated by: Jono Wooten M.D. on 11/03/2016 at 9:32 Approved by: Jono Wooten M.D. on 11/03/2016 at 9:37 Brief History HPI obtained on 11/03 60yo F with migraine with aura, GERD p/w witnessed syncopal episode. patient doesn't remember all the course of episode but, pt was usual state of health until this episode. 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 When she asked for headache, she said no. then pt started having severe nausea, but didn't vomit. Then next pt remembers is that her colleague was assisting her to lay down, remembered EMS came, gave her medicine. As per ED provider, pt lost consciousness at work talking to a co- worker, around 9am, had EBD+, called EMS, then pt was improving in her MS but not fully returned, called EMS again 20-39min later, when she was transferred to hospital. Of note, pt had episode 12yrs ago, after she had shoulder MRI, she felt same type of feeling, milder degree with lightheadedness d on his way home but didn't lose consciousness, resolved at rest. pt denied similar episode, denied seizures in the past. pt does have severe Migraine with Aura, started preventives for 12yrs, since then patient rarely requires abortive meds, last attack was one year ago when she took abortive med. doesn't remember any of the medicines' name, "I am foggy ". when she had migraine in the past, she didn't have aura with flushes, which she did not have prior to syncope. Upon interview, pt c/o back soreness, neck pain, unusual feeling on figertips on left hands, perioral area on the left face, decreased sensation throughout on left sided. didn't thinks her speech was particularity different. c/o mild cloudiness on left ear and her throat. ED VSS, labs were unremarkable, CTH/cervical spine CT, thoracic xray didn't show evidence of stroke, fracture. admitted to hospital for further stroke w/u Hospital Course acute problems syncopal episode, initially it was considered stroke given acuity, distribution of symptom, however tPA was not given onset, minor sx per ED. patient was admitted to rule out stroke, MR stroke protocol didn't show any ischemic lesions , no vasculopathy. No event was observed in Telemetry. TTE didn't show any valvular disease or thromboses.EEG didn't show any seizure focus. Patient was seen by , consensus was that it could be related to complex Migraine given patient's significant previous hx. Topiramate was increased from 50 to 100mg bid. Patient also had a episode of mild migraine attack on the day of discharge, which was controlled with Fioricet. Patient remained neurologically intact except improving left sided paresthesia. Patient was ambulating with normal gait. Patient was started on statin initially but stopped as 10yr ASCVD< 2.5%, not Ix for statin. Patient will be followed up by Neurology upon d/c and . Of note, it was also recommended to have holter monitoring or loop recorder placement given suspicion of cardiac etiology which can be arranged in the clinic. chronic problems Migraine, stab;e GERD, continued home med insomnia, continued zolpidem prn Exam Vital Signs (Last) Date Time Temp Pulse Resp B/P Pulse Ox O2 Delivery O2 Flow Rate FiO2 11/05/16 11:09 70 11/05/16 09:43 36.6 16 115/69 99 Room Air Exam NAD, comfortably laying down on the bed no JVD, MMM, no LAD RRR, nl s1, s2 no mrg CTAB, no w,c S,ND,NT,normoactive BS+ warm, no edema, pulses 2/2 neuro exam: CN2-12 intact Test 11/03/16 10:15 11/03/16 10:16 11/03/16 14:07 11/04/16 15:17 Thyroid Stimulating Hormone (TSH) 0.800uIU/mL (0.450-4.500) Free Thyroxine 1.16ng/dL (0.82-1.77) Prothrombin Time 10.5sec (8.1-12.5) Prothromb Time International Ratio 0.98ratio Activated Partial Thromboplast Time 23.5sec (22.8-33.0) Hemoglobin A1c 5.2% (4.8-5.6) Total Bilirubin 0.4mg/dL (0.0-1.2) Aspartate Amino Transf (AST/SGOT) 25U/L (0-50) Alanine Aminotransferase (ALT/SGPT) 20U/L (0-32) Alkaline Phosphatase 89U/L (25-165) Troponin T 0.010ug/L (0.0-0.011) Total Protein 7.4g/dL (6.4-8.4) Albumin 4.3g/dL (3.4-5.0) Triglycerides Level 95mg/dL (0-149) Cholesterol Level 222mg/dL (100-199) LDL Cholesterol, Calculated 143.000mg/dL (0-99) VLDL Cholesterol 19.000mg/dL HDL Cholesterol 60mg/dL (>39) Cholesterol/HDL Ratio 3.70 (0.0-4.4) Urine Color Straw (YELLOW) Urine Appearance Hazy (CLEAR,HAZY) Urine pH 7.5 (5.0-8.0) Urine Specific [place] 1.010 (1.003-1.035) Urine Protein Negativemg/dL (NEG,TRACE) Urine Glucose (UA) Negativemg/dL (NEGATIVE) Urine Ketones Negativemg/dL (NEGATIVE) Urine Occult Blood Negative (NEGATIVE) Urine Nitrite Negative (NEGATIVE) Urine Bilirubin Negative (NEGATIVE) Urine Urobilinogen Normalmg/dL (NORMAL) Urine Leukocyte Esterase Moderate (NEGATIVE) Urine RBC 0-2/hpf (0-2) Urine WBC 0-5/hpf (0-5) Urine Epithelial Cells Occasional/hpf (NONE-MOD) Urine Crystals None seen (NONE SEEN) Urine Bacteria None/hpf (NONE-FEW) Urine Hyaline Casts None/lpf (NONE) Urine Granular Casts None seen (NONE SEEN) Urine Waxy Casts None seen (NONE SEEN) Urine Red Blood Cell Casts None seen (NONE SEEN) Urine White Blood Cell Casts None seen (NONE SEEN) Urine Mucus None seen (None Seen) Urine Trichomonas None seen (NONE SEEN) Urine Yeast None (NONE SEEN) Urinalysis Comment None Urine Culture Reflexed Indicated White Blood Count 5.6th/mm3 (3.8-10.1) Red Blood Count 4.00mil/mm3 (3.90-5.20) Hemoglobin 11.9g/dL (12.0-15.6) Hematocrit 36.4% (35.0-46.0) Mean Corpuscular Volume 91.0fL (81-100) Mean Corpuscular Hemoglobin 29.8pg (27.0-35.0) Mean Corpuscular Hemoglobin Concent 32.7% (32.0-37.0) Red Cell Distribution Width 13.0% (12.3-15.4) Platelet Count 212bil/L (150-400) Neutrophils (%) (Auto) 41.4% (40-74) Lymphocytes (%) (Auto) 44.5% (14-46) Monocytes (%) (Auto) 8.9% (4-12) Eosinophils (%) (Auto) 4.1% (0-5) Basophils (%) (Auto) 1.1% (0-3) Sodium Level 140mEq/L (134-144) Potassium Level 3.9mEq/L (3.5-5.2) Chloride Level 107mEq/L (97-108) Carbon Dioxide Level 20mmol/L (18-29) Blood Urea Nitrogen 17mg/dL (8-27) Creatinine 0.85mg/dL (0.57-1.00) Estimat Glomerular Filtration Rate 97mL/min (>59) Glucose Level 134mg/dL (60-99) Calcium Level 9.5mg/dL (8.5-10.1) Magnesium Level 2.2mg/dL (1.6-2.6) Discharge Medications Discharge Medications Citalopram (Citalopram) 40 Mg Tablet 40 MG PO HS (Reported) Lorazepam (Ativan) 0.5 Mg Tablet 0.5-1 MG PO Q8H (Reported) Pantoprazole DR (Pantoprazole DR) 40 Mg Tablet.dr 40 MG PO HS (Reported) Topiramate (Topamax) 100 Mg Tablet 100 MG PO BID Prescribed by: AIMEE GLYNN MD Zolpidem (Zolpidem) 10 Mg Tablet 5 MG PO HS (Reported) As needed Butalbital/Acetamin/Caff 50-300-40 mg (Fioricet 50-300-40 mg) 1 Each Capsule 1 CAPSULE PO Q4H PRN PRN Headache Prescribed by: AIMEE GLYNN MD Additional med instructions Please note that your Topamax increased to 100mg twice a day You can take Fioricet 1tab every four hours for severe Migraine headache Followup Plan Disposition: home Discharge Diet: No restrictions Discharge Activity: No restrictions Patient Instructions You were hospitalized with witnessed syncopal episode, which probably related to your Migraine. However, given no clear etiology for your episode, It is strongly recommended to follow up with your primary doctor and Neurologist for further work ups. Please note that you should limit active physical activities such as driving as you discussed with . Follow-up Provider: Julio Villarreal MD Follow-up with PCP in: 4 weeks Provider: Robb Trevino MD Follow-up in: 1 week Time spent 65min copies to: Robb Trevino MD; StrJulio saini MD, Jongwoo MD Nov 05, 2016 13:21
== END 2016-11-05 15:06 | disposition home or self-care (01) | DRG 103 ==
LOC: SED 10:09 → OBSVTOIN 16:26 → MPC 16:26
PROVIDERS: ADMIT Internal Medicine; ATTEND Internal Medicine
PROC: 4A00X4Z Measurement of Central Nervous Electrical Activity, External Approach (ICD-10-PCS; principal; 2016-11-05)
DX: G43.109 Migraine with aura, not intractable, without status migrainosus (principal); R55 Syncope and collapse; K21.9 Gastro-esophageal reflux disease without esophagitis; G47.00 Insomnia, unspecified; E78.5 Hyperlipidemia, unspecified; Z88.0 Allergy status to penicillin; Z87.891 Personal history of nicotine dependence